=== PATIENT | male | born 1950 | race African-American/Black ===

== ENCOUNTER 2021-03-07 14:44 | Inpatient (IN) | payer OTHER ==
[~2021-03-07] VITALS: Ht 188 cm; Wt 114.3 kg
--- NOTE | ~2021-03-07 | EMS ---
[address] [address] EMS Patient Care Report Name: MANDIE CARROLL Room #: 201-P ADM IN M.R.#: [id number] Admission: 03/07/21 Attend Phys: Tenisha Mills MD Discharge: Date of : 52 Report #: [id number] THIS REPORT FOR: //name// Report Transmitted: 03/07/2021 23:49 EMS Care Summary [place], [place]/[facility] Incident [id number] @ 03/07/2021 14:21 Incident Location [address] [place] [address] Patient MANDIE CARROLL Male, 70 Years 1950 Patient Address [address] [id number] Patient History Diabetes,Pacemaker/AICD,Hyperlipidemia,Atrial Fibrillation,Dialysis,Chronic Kidney Disease, Patient Allergies No known allergies, Patient Medications Glipizide, Allopurinol, Nitroglycerin, Apixaban, Aspirin, Amiodarone, Atorvastatin, Hyoscyamine, Torsemide, Loratadine, Carvedilol, Chief Complaint CARDIAC ARREST Disposition Transported Lights/[place] Dispatch Reason Cardiac Arrest/ Transported To [facility] Narrative MEDIC 41 DISPATCHED FOR A CARDIAC ARREST. UPON ARRIVAL PUMPER 36 WAS ALREADY ON SCENE AND WITH THE PATIENT. THE PATIENT WAS FOUND IN A DIALYSIS CENTER AND HE WAS RECEIVING A TREATMENT THIS DAY. STAFF REPORTED THAT THE PATIENT HAD GONE [address] [address] EMS Patient Care Report Name: MANDIE CARROLL Room #: 201-P [facility] IN M.R.#: [id number] Admission: 03/07/21 Attend Phys: Tenisha Mills MD Discharge: Date of : 52 Report #: [id number] INTO CARDIAC ARREST AND THEY STARTED COMPRESSIONS. STAFF STATED THEY SHOCKED HIM TWICE AND GOT ROSC WITH NO DRUG ADMINISTRATION. THE PATIENT WAS AWAKE AND BECAME MORE ALERT DURING OUR TIME ON SCENE AND CONSENTED TO ALL VITALS AND ASSESSMENT. THE PATIENT DID HAVE NRB ON THAT PUMPER 36 PLACED BUT IT WAS REMOVED DUE TO THE PATIENT VOMITING. A 12 LEAD WAS OBTAINED BY PUMPER 36 BEFORE MOVING THE PATIENT TO THE STRETCHER. THE PRINTED OFF [address] ELEVATION IN LEADS V3 AND V4. THE PATIENT WAS MOVED TO OUR STRETCHER AND TAKEN OUT TO THE AMBULANCE WITH NO INCIDENT. THE PATIENT WAS LEFT ON PUMPER 36'S MONITOR AND IT WAS TAKEN WITH EMS. IV WAS ESTABLISHED AND PATIENT WAS PUT BACK ON THE MONITOR WHILE IN THE AMBULANCE. DURING TRANSPORT THE PATIENT'S CONDITION REMAINED CONSTANT. UPON ARRIVAL TO THE HOSPITAL THE PATIENT WAS MOVED TO THE ED WITHOUT INCIDENT AND CARE WAS TRANSFERRED TO THE ED NURSE. A SECOND BLOOD PRESSURE WAS ATTEMPTED BUT UNABLE TO OBTAIN. Initial Vitals @14:33P: 83,R: 21,CO: 2,SpO2: 86, @PTAP: 114,R: 55,CO: 0,SpO2: 93, @14:39P: 102,R: 26,Glucose: 124,SpO2: 94, @PTAP: 105,R: 25,BP: 181/95,GCS: 15,CO: 1,SpO2: 94,Revised Trauma: 12, @14:37P: 101,R: 33,GCS: 15,CO: 3,SpO2: 95, @14:44P: 77,R: 20,GCS: 15,CO: 6,SpO2: 97, Assessments @14:33MENTAL:Person Oriented,Place Oriented,Time Oriented,Event Oriented,SKIN:HEENT:Head/Face: No Abnormalities,Neck/Airway: No Abnormalities,LUNG SOUNDS:General: Vomiting,ABDOMEN:General: Vomiting,PELVIS//GI:EXTREMITIES:Capillary Refill: Left Upper: < 2 Sec,Capillary Refill: Right Upper: < 2 Sec,Left Arm: No Abnormalities,Right Arm: No Abnormalities,PULSE:Radial: 2+ Normal,NEURO:@14:44MENTAL:Place Oriented,Person Oriented,Time Oriented,Event Oriented,SKIN:HEENT:Head/Face: No Abnormalities,Neck/Airway: No Abnormalities,LUNG SOUNDS:ABDOMEN:PELVIS//GI:EXTREMITIES:Capillary Refill: Left Upper: < 2 Sec,Capillary Refill: Right Upper: < 2 Sec,Left Arm: No Abnormalities,Right Arm: No Abnormalities,PULSE:Radial: 2+ Normal,NEURO: Impression ST elevation myocardial infarction (STEMI) Procedures @14:32 ALS Assessment Response: UnchangedSucceeded @14:34 Stretcher Response: Unchanged @BURRER HAND Response: ImprovedSucceeded @PTA3-Lead ECG Response: UnchangedSucceeded @BURRER HAND Response: UnchangedSucceeded @BURRER HAND Response: ImprovedSucceeded @14:39 IV Therapy - Saline Lock 10cc (20 ga) Site: Hand-Left Response: [address] [address] EMS Patient Care Report Name: MANDIE CARROLL Room #: 201-P [facility] IN M.R.#: [id number] Admission: 03/07/21 Attend Phys: Tenisha Mills MD Discharge: Date of : 52 Report #: [id number] UnchangedSucceeded @14:33 12-Lead ECG Response: UnchangedSucceeded @PTAOxygen Device: Non Re-breather Mask (NRB) Response: ImprovedSucceeded Timeline BURRER HAND,Response: ImprovedSucceeded, BURRER HAND,3-Lead ECG,Response: UnchangedSucceeded, BURRER HAND,Response: UnchangedSucceeded, BURRER HAND,Response: ImprovedSucceeded, BURRER HAND,Oxygen Device: Non Re-breather Mask (NRB) Response: ImprovedSucceeded, BURRER HAND,BP: / M,PULSE: 114,RR: 55 R,SPO2: 93 Ox,ETCO2: ,BG: ,PAIN: ,GCS: , BURRER HAND,BP: 181/95 M,PULSE: 105,RR: 25 R,SPO2: 94 Ox,ETCO2: ,BG: ,PAIN: ,GCS: 15, 14:21,Call Received 14:21,Dispatch Notified 14:21,Dispatched 14:22,En Route 14:31,On Scene 14:32,At Patient 14:32,ALS Assessment,Response: UnchangedSucceeded, 14:33,12-Lead ECG,Response: UnchangedSucceeded, 14:33,BP: / M,PULSE: 83,RR: 21 R,SPO2: 86 Ox,ETCO2: ,BG: ,PAIN: ,GCS: , 14:34,Stretcher,Response: Unchanged 14:37,BP: / M,PULSE: 101,RR: 33 R,SPO2: 95 Ox,ETCO2: ,BG: ,PAIN: ,GCS: 15, 14:39,IV Therapy - Saline Lock 10cc 20 ga Site: Hand-Left,Response: UnchangedSucceeded, 14:39,BP: / M,PULSE: 102,RR: 26 R,SPO2: 94 Ox,ETCO2: ,B,PAIN: ,GCS: , 14:39,Depart Scene 14:44,BP: / M,PULSE: 77,RR: 20 R,SPO2: 97 Ox,ETCO2: ,BG: ,PAIN: ,GCS: 15, 14:45,At Destination 15:14,Call Closed Disclaimer v1.1 Copyright 2020 [employer] This EMS Care Summary contains data elements from the applicable legal record (which may be displayed differently). It is designed to provide pertinent information for the following purposes: continuity of care, clinical quality, and state data reporting. The complete legal record is available to ED staff and administrators of the receiving hospital in [employer]'s Patient Tracker. All data is provided "as is."
--- NOTE | ~2021-03-07 | EMS ---
[address] [address] EMS Patient Care Report Name: MANDIE CARROLL Room #: 201-P ADM IN M.R.#: [id number] Admission: 03/07/21 Attend Phys: Tenisha Mills MD Discharge: Date of : 52 Report #: [id number] THIS REPORT FOR: //name// Report Transmitted: 03/07/2021 22:47 EMS Care Summary [place], [place]/[facility] Incident [id number] @ 03/07/2021 14:21 Incident Location [address] [place] [address] Patient MANDIE CARROLL Male, 70 Years 1950 Patient Address [address] [place] [address] Patient History Diabetes,Pacemaker/AICD,Hyperlipidemia,Atrial Fibrillation,Dialysis,Chronic Kidney Disease, Patient Allergies No known allergies, Patient Medications Glipizide, Allopurinol, Nitroglycerin, Apixaban, Aspirin, Amiodarone, Atorvastatin, Hyoscyamine, Torsemide, Loratadine, Carvedilol, Chief Complaint CARDIAC ARREST Disposition Transported Lights/[place] Dispatch Reason Cardiac Arrest/ Transported To [facility] Narrative MEDIC 41 DISPATCHED FOR A CARDIAC ARREST. UPON ARRIVAL PUMPER 36 WAS ALREADY ON SCENE AND WITH THE PATIENT. THE PATIENT WAS FOUND IN A DIALYSIS CENTER AND HE WAS RECEIVING A TREATMENT THIS DAY. STAFF REPORTED [place] [address] EMS Patient Care Report Name: MANDIE CARROLL Room #: 201-P [facility] IN M.R.#: [id number] Admission: 03/07/21 Attend Phys: Tenisha Mills MD Discharge: Date of : 52 Report #: [id number] INTO CARDIAC ARREST AND THEY STARTED COMPRESSIONS. STAFF STATED THEY SHOCKED HIM TWICE AND GOT ROSC WITH NO DRUG ADMINISTRATION. THE PATIENT WAS AWAKE AND BECAME MORE ALERT DURING OUR TIME ON SCENE AND CONSENTED TO ALL VITALS AND ASSESSMENT. THE PATIENT DID HAVE NRB ON THAT PUMPER 36 PLACED BUT IT WAS REMOVED DUE TO THE PATIENT VOMITING. A 12 LEAD WAS OBTAINED BY PUMPER 36 BEFORE MOVING THE PATIENT TO THE STRETCHER. THE PRINTED OFF [address] ELEVATION IN LEADS V3 AND V4. THE PATIENT WAS MOVED TO OUR STRETCHER AND TAKEN OUT TO THE AMBULANCE WITH NO INCIDENT. THE PATIENT WAS LEFT ON PUMPER 36'S MONITOR AND IT WAS TAKEN WITH EMS. IV WAS ESTABLISHED AND PATIENT WAS PUT BACK ON THE MONITOR WHILE IN THE AMBULANCE. DURING TRANSPORT THE PATIENT'S CONDITION REMAINED CONSTANT. UPON ARRIVAL TO THE HOSPITAL THE PATIENT WAS MOVED TO THE ED WITHOUT INCIDENT AND CARE WAS TRANSFERRED TO THE ED NURSE. A SECOND BLOOD PRESSURE WAS ATTEMPTED BUT UNABLE TO OBTAIN. Initial Vitals @14:33P: 83,R: 21,CO: 2,SpO2: 86, @PTAP: 114,R: 55,CO: 0,SpO2: 93, @14:39P: 102,R: 26,Glucose: 124,SpO2: 94, @PTAP: 105,R: 25,BP: 181/95,GCS: 15,CO: 1,SpO2: 94,Revised Trauma: 12, @14:37P: 101,R: 33,GCS: 15,CO: 3,SpO2: 95, @14:44P: 77,R: 20,GCS: 15,CO: 6,SpO2: 97, Assessments @14:33MENTAL:Person Oriented,Place Oriented,Time Oriented,Event Oriented,SKIN:HEENT:Head/Face: No Abnormalities,Neck/Airway: No Abnormalities,LUNG SOUNDS:General: Vomiting,ABDOMEN:General: Vomiting,PELVIS//GI:EXTREMITIES:Capillary Refill: Left Upper: < 2 Sec,Capillary Refill: Right Upper: < 2 Sec,Left Arm: No Abnormalities,Right Arm: No Abnormalities,PULSE:Radial: 2+ Normal,NEURO:@14:44MENTAL:Place Oriented,Person Oriented,Time Oriented,Event Oriented,SKIN:HEENT:Head/Face: No Abnormalities,Neck/Airway: No Abnormalities,LUNG SOUNDS:ABDOMEN:PELVIS//GI:EXTREMITIES:Capillary Refill: Left Upper: < 2 Sec,Capillary Refill: Right Upper: < 2 Sec,Left Arm: No Abnormalities,Right Arm: No Abnormalities,PULSE:Radial: 2+ Normal,NEURO: Impression ST elevation myocardial infarction (STEMI) Procedures @14:32 ALS Assessment Response: UnchangedSucceeded @14:34 Stretcher Response: Unchanged @SPLICING MACHINE OPERATOR AUTOMATIC Response: ImprovedSucceeded @PTA3-Lead ECG Response: UnchangedSucceeded @SPLICING MACHINE OPERATOR AUTOMATIC Response: UnchangedSucceeded @SPLICING MACHINE OPERATOR AUTOMATIC Response: ImprovedSucceeded @14:39 IV Therapy - Saline Lock 10cc (20 ga) Site: Hand-Left Response: [address] [address] EMS Patient Care Report Name: MANDIE CARROLL Room #: 201-P [facility] IN M.R.#: [id number] Admission: 12/24/21 Attend Phys: Tenisha Mills MD Discharge: Date of : 52 Report #: [id number] UnchangedSucceeded @14:33 12-Lead ECG Response: UnchangedSucceeded @PTAOxygen Device: Non Re-breather Mask (NRB) Response: ImprovedSucceeded Timeline SPLICING MACHINE OPERATOR AUTOMATIC,Response: ImprovedSucceeded, SPLICING MACHINE OPERATOR AUTOMATIC,3-Lead ECG,Response: UnchangedSucceeded, SPLICING MACHINE OPERATOR AUTOMATIC,Response: UnchangedSucceeded, SPLICING MACHINE OPERATOR AUTOMATIC,Response: ImprovedSucceeded, SPLICING MACHINE OPERATOR AUTOMATIC,Oxygen Device: Non Re-breather Mask (NRB) Response: ImprovedSucceeded, SPLICING MACHINE OPERATOR AUTOMATIC,BP: / M,PULSE: 114,RR: 55 R,SPO2: 93 Ox,ETCO2: ,BG: ,PAIN: ,GCS: , SPLICING MACHINE OPERATOR AUTOMATIC,BP: 181/95 M,PULSE: 105,RR: 25 R,SPO2: 94 Ox,ETCO2: ,BG: ,PAIN: ,GCS: 15, 14:21,Call Received 14:21,Dispatch Notified 14:21,Dispatched 14:22,En Route 14:31,On Scene 14:32,At Patient 14:32,ALS Assessment,Response: UnchangedSucceeded, 14:33,12-Lead ECG,Response: UnchangedSucceeded, 14:33,BP: / M,PULSE: 83,RR: 21 R,SPO2: 86 Ox,ETCO2: ,BG: ,PAIN: ,GCS: , 14:34,Stretcher,Response: Unchanged 14:37,BP: / M,PULSE: 101,RR: 33 R,SPO2: 95 Ox,ETCO2: ,BG: ,PAIN: ,GCS: 15, 14:39,IV Therapy - Saline Lock 10cc 20 ga Site: Hand-Left,Response: UnchangedSucceeded, 14:39,BP: / M,PULSE: 102,RR: 26 R,SPO2: 94 Ox,ETCO2: ,B,PAIN: ,GCS: , 14:39,Depart Scene 14:44,BP: / M,PULSE: 77,RR: 20 R,SPO2: 97 Ox,ETCO2: ,BG: ,PAIN: ,GCS: 15, 14:45,At Destination 15:14,Call Closed Disclaimer v1.1 Copyright 2020 [employer] This EMS Care Summary contains data elements from the applicable legal record (which may be displayed differently). It is designed to provide pertinent information for the following purposes: continuity of care, clinical quality, and state data reporting. The complete legal record is available to ED staff and administrators of the receiving hospital in [employer]'s Patient Tracker. All data is provided "as is."
[~2021-03-07 14:44] MED LIST: ACTOS 45 MG45 M1 PO; ACTOS15 MG PO; ADULT LOW DOSE81 MG PO; ALLOPURINOL 10100 M1 PO; AMLODIPINE BESY10 MG PO; ASPIRIN EC81 M1 PO; ASPIRIN325 PO; BENICAR40 MG PO; CARVEDILOL25 MG PO; CLARITIN10 MG PO; COREG CR80 MG PO; CRESTOR40 MG PO; ENALAPRIL MALEA20 MG PO; FERROUS SULFAT325 M1 PO; FISH OIL SOFTG1 EACH PO; FISHOIL PO; FLOMAX PO; FUROSEMIDE 80 M80 M1 PO; GLUCOPHAGE1000 MG PO; GLUCOTROL XL2.5 MG PO; HYDROCODON-ACE1 EAC1 PO; LIPITOR40 MG PO; LISINOPRIL20 MG PO; LOVASTATIN 20 M20 MG PO; MEDROL DOSPAK21 TAB PO; NICOTINE TRANSDE7 MG TD; NORCO 5-325 TA1 EACH PO; PRAVACHOL40 MG PO; PREDNISONE50 MG PO; PROAIR HFA8.5 GM; PROAIR HFA8.5 GM IH; SYMBICORT160 MCG/4.; TORSEMIDE20 MG PO; VITAMIN D-32000 UNIT PO; WELLBUTRIN75 MG PO; ZETIA10 MG PO; ZPAK PO
[2021-03-07 14:55] VITALS: BP 124/78
[2021-03-07] MEDS ORDERED: PACERONE 200 M200 M1 PO (15:14)
[2021-03-07] MEDS ORDERED: ASA81BEC PO (15:14)
[2021-03-07] MEDS ORDERED: ATORVASTATIN CA80 MG PO (15:16)
[2021-03-07 15:18] LABS: ABSOLUTE NEUTROPHILS 3.5 thou/uL (1.4-8.2); BASOPHILS 1.2 % (0.0-2.0); EOSINOPHILS 2.4 % (0.0-3.0); HEMATOCRIT 32.5 % (42.0-52.0); HEMOGLOBIN 10.5 gm/dL (14.0-18.0); LYMPHOCYTES 14.4 % (24.0-44.0); MCH 29.7 pg (26.0-34.0); MCHC 32.3 g/dL (28.0-37.0); MCV 92.2 fL (80.0-100.0); MONOCYTES 8.9 % (1.0-8.0); PLATELET COUNT 230 thou/uL (150-400); POLYS 73.1 % (36.0-66.0); RBC 3.52 mil/uL (4.50-6.00); RDW 20.9 % (10.5-14.5); WBC 4.7 thou/uL (4.0-11.0)
[2021-03-07 15:26] LABS: CREATININE 4.5 mg/dL (0.7-1.3); POTASSIUM 3.5 mmol/L (3.5-5.1)
[2021-03-07 15:36] LABS: ALBUMIN 2.9 g/dL (3.4-5.0); TOTAL BILIRUBIN 0.6 mg/dL (0.2-1.0)
[2021-03-07] MEDS ORDERED: GLUCOTROL XL2.5 MG PO (15:36)
[2021-03-07] MEDS ORDERED: ZETIA10 MG PO (15:36)
[2021-03-07] MEDS ORDERED: NEPHRO-VITE TA0.8 MG PO (15:37)
[2021-03-07 19:27] VITALS: BP 138/80
[2021-03-07 22:05] VITALS: BP 136/82
--- NOTE | 2021-03-08 04:21 | NUR ---
PT ARRIVED ON UNIT AT 2100 FROM ER. ADMITTED POST CODE DURING DIALYSIS. LIVES AT HOME WITH . NO CHEST PAIN. NO RESIDUALS POST CODE. INDEPENDENT IN ROOM. NO NEEDS VOICED. CALL LIGHT WITHIN REACH. FREQUENT OBSERVATION.
[2021-03-08 04:45] VITALS: BP 124/59
[2021-03-08 07:00] VITALS: BP 105/55
[2021-03-08 11:00] VITALS: BP 96/55
--- NOTE | 2021-03-08 12:53 | NUR ---
PLEASE SEE OT VARIANCE
[2021-03-08 13:54] VITALS: BP 86/49
[2021-03-08 15:00] VITALS: BP 100/64
--- NOTE | 2021-03-08 17:30 | NUR ---
PATIENT RESTED IN BED THROUGHOUT SHIFT, TURNS SELF. AMIODARONE WAS STARTED PER CARDIOLOGY. CARDIOLOGY WAS NOTIFIED OF THE DECREASE IN BLOOD PRESSURE, DR. RECINOS STATED THAT THE BLOOD PRESSURE WAS OK FOR THE AMIODARONE AND TO CONTINUE TO MONITOR. BLOOD PRESSURE DID REBOUND SLIGHTLY. PT COMPLAINED OF CHEST PAIN THAT INCREASED WITH PALPATATION STATING IT HAS BEEN THE SAME SINCE ADMIT AND DENIED THE NEED FOR ADDITIONAL PAIN CONTROL.
[2021-03-08 19:32] VITALS: BP 116/66
[2021-03-09 04:06] LABS: ABSOLUTE NEUTROPHILS 5.8 thou/uL (1.4-8.2); BASOPHILS 0.8 % (0.0-2.0); HEMATOCRIT 29.5 % (42.0-52.0); HEMOGLOBIN 9.6 gm/dL (14.0-18.0); LYMPHOCYTES 7.6 % (24.0-44.0); MCH 29.8 pg (26.0-34.0); MCHC 32.5 g/dL (28.0-37.0); MCV 91.9 fL (80.0-100.0); PLATELET COUNT 188 thou/uL (150-400); POLYS 74.6 % (36.0-66.0); RBC 3.21 mil/uL (4.50-6.00); RDW 20.3 % (10.5-14.5); WBC 7.8 thou/uL (4.0-11.0)
[2021-03-09 04:15] LABS: ALBUMIN 2.9 g/dL (3.4-5.0); CALCIUM 8.2 mg/dL (8.5-10.1); MAGNESIUM 2.1 mg/dL (1.8-2.4); PHOSPHORUS 7.1 mg/dL (2.5-4.9); POTASSIUM 4.3 mmol/L (3.5-5.1)
[2021-03-09 04:23] LABS: CREATININE 8.3 mg/dL (0.7-1.3)
[2021-03-09 04:26] VITALS: BP 137/78
[2021-03-09 09:18] VITALS: BP 148/92
[2021-03-09 10:29] VITALS: BP 131/75
[2021-03-09 14:48] VITALS: BP 137/92
--- NOTE | 2021-03-09 16:37 | NUR ---
PATIENT ASSESMENTS CHARTED. PATIENT COMPLAINING OF NO BM AND THROAT SORENESS.
--- NOTE | 2021-03-09 19:30 | NUR ---
Patient received with infiltrated IV on right hand, Amiodarone drip infusing. Burning pain,very swollen. Ice pack applied then warm moist heat to hekp relieve pain along with Tylenol.
[2021-03-09 19:47] VITALS: BP 162/96
[2021-03-09 21:12] LABS: HEMATOCRIT 30.2 % (42.0-52.0); HEMOGLOBIN 9.7 gm/dL (14.0-18.0)
[2021-03-10 04:06] VITALS: BP 144/95
--- NOTE | 2021-03-10 06:40 | NUR ---
Patient making slow progress towards outcome goals. Vital signs and rhythm stable. Amiodarone drip infusing on new IV site @ right forearm. Right hand pain and swelling improved after patient applied Lidocaine cream. NPO after MN for planned heart cath after dialysis. Dialysis expected to complete after 3 1/2 hours, before noon per dialysis nurse. No results after Miralax. Incidental Hypoglycemia treated with juice with improvement.
[2021-03-10 07:11] VITALS: BP 150/98
--- NOTE | 2021-03-10 07:15 | EKG ---
[place] [address] [employer] [facility] [place] [address] ELECTROCARDIOGRAM REPORT Name: GLENMANDIE LEE Room #: 201-P ADM IN M.R.#: [id number] Admission: 03/07/21 Attend Phys: Tenisha Mills MD Discharge: Date of : 52 Report #: [id number] [facility] ED Test Date: 2021-03-07 Test Time: 14:50:49 Pat Name: MANDIE CARROLL Department: Room: 201 Gender: M National Sales Consultant: BRISA : 1950 Requested By: Priyank Esquivel Order Number: [id number] MD: Parveen Martin Measurements Intervals [place] Rate: 95 P: 207 TN: 216 QRS: 152 QRSD: 189 T: 266 QT: 466 QTc: 586 Interpretive Statements Atrial-sensed ventricular-paced complexes No further analysis attempted due to paced rhythm Baseline wander in lead(s) III,aVL Compared to ECG 12/01/2013 09:08:06 Sinus rhythm no longer present Left-axis deviation no longer present Myocardial infarct finding no longer present T-wave abnormality no longer present Possible ischemia no longer present Electronically Signed On 03-10-2021 7:14:51 CHEF CONCIERGE by Parveen Martin [email or web address] <ELECTRONICALLY SIGNED> By: Parveen Martin MD, FACC 03/10/21 0714 1450 1450 Parveen Martin MD, FACC /EPI
--- NOTE | 2021-03-10 07:17 | EKG ---
[place] [address] [facility] [place] [address] ELECTROCARDIOGRAM REPORT Name: MANDIE CARROLL Room #: 201-P ADM IN M.R.#: [id number] Admission: 03/07/21 Attend Phys: Tenisha Mills MD Discharge: Date of : 52 Report #: [id number] [facility] Test Date: 2021-03-08 Test Time: 09:30:51 Pat Name: MANDIE CARROLL Department: Room: 201 P Gender: M Professional Fighter: KADY : 1950 Requested By: Rocío Rdz Order Number: [id number] MD: Parveen Martin Measurements Intervals [place] Rate: 88 P: 50 KS: 202 QRS: 217 QRSD: 106 T: 139 QT: 422 QTc: 511 Interpretive Statements Atrial-sensed ventricular-paced complexes No further analysis attempted due to paced rhythm Baseline wander in lead(s) V1 Compared to ECG 03/07/2021 14:50:49 No significant changes Electronically Signed On 03-10-2021 7:17:14 SALON SALES CONSULTANT by Parveen Martin [email or web address] <ELECTRONICALLY SIGNED> By: Parveen Martin MD, [facility] 03/10/21 07 9 9 Parveen Martin MD, [facility] /EPI
[2021-03-10 07:28] LABS: HEMATOCRIT 27.3 % (42.0-52.0)
--- NOTE | 2021-03-10 08:56 | 2DMMODE ---
[facility] [place] [address] 2 D/M-MODE ECHOCARDIOGRAM Name: MANDIE CARROLL Room #: 201-P ADM IN M.R.#: [id number] Admission: 03/07/21 Attend Phys: Tenisha Mills MD Discharge: Date of : 52 Report #: [id number] THIS REPORT FOR: cc: FAM - Family physician unknown FAM - Family physician unknown Irvin Vizcaino MD [facility] ~ APPROVED REPORT Study performed: 03/09/2021 10:27:31 EXAM: Comprehensive 2D, Doppler, and color-flow Echocardiogram Patient Location: Bedside Room #: 201 Status: on-call BSA: 2.39 HR: 78 bpm BP: 135/65 mmHg Rhythm: NSR Other Information Study Quality: Good Indications Elevated troponin, VT. Hx: ICD, CAD, PCI, ISCM. 2D Dimensions RVDd: 59.91 mm IVSd: 14.94 (7-11mm) LVOT Diam: 20.51 (18-24mm) LVDd: 67.14 mm PWd: 7.88 (7-11mm) LVDs: 58.95 (25-40mm) Left Atrium: 54.06 (27-40mm) Aortic Root: 29.56 mm Volumes Left Atrial Volume (Systole) Single Plane 4CH: 113.35 mL Single Plane 2CH: 125.08 mL LA ESV Index: 52.00 mL/m2 Aortic Valve AoV Peak Edin.: 1.63 m/s AO Peak Gr.: 10.60 mmHg LVOT Max P.25 mmHg LVOT Max V: 1.03 m/s [facility] [address] [place] [address] 2 D/M-MODE ECHOCARDIOGRAM Name: MANDIE CARROLL Room #: 201-P [facility] IN [facility].#: [id number] Admission: 03/07/21 Attend Phys: Azalea Abbott Discharge: Date of : 52 Report #: [id number] Vmax: 2.09 cm2 Mitral Valve E/A Ratio: 4.0 MV Decel. Time: 131.05 ms MV E Max Edin.: 1.39 m/s MV A Edin.: 0.35 m/s MV PHT: 38.01 ms IVRT: 55.36 ms Pulmonary Valve PV Peak Edin.: 0.71 m/s PV Peak Gr.: 1.99 mmHg Tricuspid Valve TR Peak Edin.: 3.76 m/s RAP Estimate: 15.00 mmHg TR Peak Gr.: 57.00 mmHg PA Pressure: 72.00 mmHg Left Ventricle Left ventricle is moderately dilated. Regional wall motion abnormalities are noted.inf worse Moderate septal hypertrophy is present. Left ventricular systolic function is moderately decreased. LVEF is 35-40%. Severe diastolic dysfunction is present (restrictive filling). Right Ventricle Right ventricle is dilated. Device lead is present in the right ventricle. Atria Severe biatrial enlargement. Aortic Valve Aortic valve is calcified. Trace aortic regurgitation. There is no aortic valvular stenosis. Mitral Valve The mitral valve is normal in structure. Moderate to severe mitral regurgitation Tricuspid Valve The tricuspid valve is normal in structure. Severe tricuspid regurgitation. There is severe pulmonary hypertension. Estimated PAP is 70mmHg. Pulmonic Valve [facility] [address] [place] [address] 2 D/M-MODE ECHOCARDIOGRAM Name: GLENMANDIE LEE Room #: [facility] ADM IN ..#: [id number] Admission: 03/07/21 Attend Phys: Azalea Abbott Discharge: Date of : 52 Report #: [id number] The pulmonary valve is normal in structure. Mild pulmonic regurgitation. Great Vessels The aortic root is normal in size. IVC is dilated and collapses <50% with inspiration. Pericardium There is no pericardial effusion. <Conclusion> Left ventricle is moderately dilated. Moderate septal hypertrophy is present. Regional wall motion abnormalities are noted.inf worse LVEF is 35-40%. Severe diastolic dysfunction is present (restrictive filling). Right ventricle is dilated. Device lead is present in the right ventricle. Severe biatrial enlargement. Aortic valve is calcified. Trace aortic regurgitation. There is no aortic valvular stenosis. Moderate to severe mitral regurgitation Severe tricuspid regurgitation. There is severe pulmonary hypertension. Estimated PAP is 70mmHg. The aortic root is normal in size. There is no pericardial effusion. <ELECTRONICALLY SIGNED> By: Irvin Vizcaino MD, FACC 03/10/21855 5 5 Irvin Vizcaino MD, FACC /INF
[2021-03-10 13:22] VITALS: BP 127/77
--- NOTE | 2021-03-10 14:05 | NUR ---
Nutrition: RD consulted r/t pt/family request. Pt denied need to speak with this RD at time of visit. Although pt had just returned from cardiac cath procedure. No family in room at time of visit. He is admitted s/p code at dialysis clinic. Physicians unsure of cardiac event vs syncope. Pt reports familiar with RD at his dialysis clinic and denies need for any education at this time. RD educated to notify nursing if he or his family desired to speak with us int he future. Currently NPO, good intakes reported by pt BUNCH MAKER HAND. No sig wt changes noted. Low nutrition risk at this time.
[2021-03-10 14:59] VITALS: BP 139/81
[2021-03-10 20:15] VITALS: BP 139/74
[2021-03-11 04:44] VITALS: BP 142/90
[2021-03-11 05:37] LABS: ABSOLUTE NEUTROPHILS 5.1 thou/uL (1.4-8.2); BASOPHILS 1.3 % (0.0-2.0); EOSINOPHILS 1.9 % (0.0-3.0); HEMATOCRIT 28.2 % (42.0-52.0); HEMOGLOBIN 9.3 gm/dL (14.0-18.0); LYMPHOCYTES 4.4 % (24.0-44.0); MCH 29.7 pg (26.0-34.0); MCHC 32.9 g/dL (28.0-37.0); MCV 90.2 fL (80.0-100.0); MONOCYTES 13.7 % (1.0-8.0); PLATELET COUNT 175 thou/uL (150-400); POLYS 78.7 % (36.0-66.0); RBC 3.12 mil/uL (4.50-6.00); RDW 19.4 % (10.5-14.5); WBC 6.5 thou/uL (4.0-11.0)
[2021-03-11 06:09] LABS: CALCIUM 8.2 mg/dL (8.5-10.1); CREATININE 7.7 mg/dL (0.7-1.3); MAGNESIUM 1.8 mg/dL (1.8-2.4); POTASSIUM 4.4 mmol/L (3.5-5.1)
[2021-03-11] MEDS ORDERED: PACERONE 200 M200 M1 PO ×2 (07:32→08:40)
--- NOTE | 2021-03-11 08:24 | NUR ---
pt stated he only slept on and off thru the noc, no c/o pain, vss, hoping to go home today, r groin remains cdi, report given to next shift to con't ppoc
[2021-03-11] MEDS ORDERED: ELIQUIS2.5 MG PO (08:37)
[2021-03-11 09:30] VITALS: BP 143/79
--- NOTE | 2021-03-11 09:49 | NUR ---
ORDERS RECEIVED FOR PT EVAL AND TREAT. Pt HAS BEEN UP AD LALA IN ROOM, WHICH RN CONFIRMED. STATED HE USUALLY USES A CANE AT HOME BUT HAS BEEN OKAY FOR SHORT DISTANCES IN ROOM WHILE HERE. CARDIAC CATH 03/10/21. Pt DECLINED NEED FOR PT AT THIS TIME. ACUTE PT TO SIGN OFF.
[2021-03-11 10:58] VITALS: BP 143/79
[2021-03-11 11:06] VITALS: BP 143/79
--- NOTE | 2021-03-11 11:58 | NUR ---
PATIENT DISCHARGED WITH . IV AND TELE REMOVED. PATIENT HAS NO QUESTIONS OVER HOSPITAL COURSE AND OUTPATIENT FOLLOW UP.
--- NOTE | 2021-03-11 22:20 | CATHLAB ---
[facility] [place] [address] INVASIVE PROCEDURE REPORT Name: MANDIE CARROLL Room #: 201-P DIS IN M.R.#: [id number] Admission: 03/07/21 Attend Phys: Tenisha Mills MD Discharge: 03/11/21 Date of : 52 Report #: [id number] THIS REPORT FOR: cc: FAM - Family physician unknown FAM - Family physician unknown Irvin Vizcaino MD [facility] ~ APPROVED REPORT Study performed: 03/10/2021 11:06:56 Patient Details Patient Status: In-Patient Room #: 201 The patient is a 70 year-old male Event Personnel Irvin Vizcaino Life [employer] Specialist, Elena Carroll RTR Monitor, Melva Strange RTR, UNDERWATER ROBOTICIST Scrub, Vee Darden RN RN, Issa Beck RN graphic design manager Performed Art Access - R femoral artery* Jeovany Access - R femoral vein Right and Left Heart Cath w/or w/o Coronarie [id number] [facility] Hemostasis with Manual pressure Hemostasis w/ Mynx 37218 Initial Mod Sed Same Phys/QHP Gr5y [id number] Mod Sed Same Phys/QHP Ea [id number] Procedure Narrative The Right Groin^ was infiltrated with 1% Lidocaine subcutaneous anesthesia. A PINNACLE 6FR Sheath #[id number] sheath was inserted into the RFA. Coronary angiography was performed using coronary diagnostic catheters. The right coronary system was accessed and visualized with a JR4 catheter. The left coronary system was accessed and visualized with a JL4 catheter. The left ventricle was accessed and visualized with a STRAIGHT PIGTAIL catheter. Left ventriculogram was performed in 30 degree projection. Closure device was deployed with a Fr MYNXGRIP 6/7F #[id number]. The patient tolerated the procedure well and there were no complications associated with the procedure. There was no hematoma. Intraoperative Conscious Sedation Sedation start time: 12:11 Case end Time: 12:55 Fentanyl 50 mcg Versed 1 mg Fluoro Time: 5.40 minutes [facility] [address] [place] [address] INVASIVE PROCEDURE REPORT Name: MANDIE CARROLL Room #: 201-P [facility] IN .R.#: [id number] Admission: 03/07/21 Attend Phys: Azalea Abbott Discharge: 03/11/21 Date of : 52 Report #: [id number] Dose: DAP 93519.50 cGycm2 1398 mGy Contrast Type and Amount: Visipaque 110 ml Hemodynamics The right atrial mean pressure is 19 mmHg. The right ventricular pressure is 80/6 mmHg. The pulmonary artery pressure is 80/36 mmHg with a mean of 52 mmHg. The mean pulmonary capillary wedge pressure is 22 mmHg. The aortic pressure is 141/70 mmHg with a mean of 102 mmHg. The left ventricular pressure is 152/10 mmHg with a mean of mmHg. The left ventricular end diastolic pressure is 30 mmHg. The cardiac output using thermo method is 5.40 L/min. The cardiac index using thermo method is 2.25 L/min/m2. Conclusion #1 Successful right heart catheterization with cardiac output by thermodilution. See above hemodynamics. #2 moderately dilated left ventricle with moderate global hypokinesis worse inferior EF 35 to 40% range. #3 the left main is large and ectatic widely patent giving rise to LAD and circumflex. #4 LAD is moderately diseased looks to be a proximal stent previously placed appears widely patent diffuse disease throughout the system and into the diagonal no occlusive disease. #5 circumflex OM is also large and ectatic with an eccentric 70% lesion after an OM takeoff and the circumflex but just diffusely slow flow throughout extensively calcified system would be no indication for coronary intervention. Extensive choroidopathy is noted. May have been or is codominant. 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 Recommendations and plan: Continue aggressive risk factor modification. 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 We will continue amiodarone load no indication for intervention here. These are large ectatic vessels that would not be very amenable to intervention if it was indicated. <ELECTRONICALLY SIGNED> By: Irvin Vizcaino MD, FACC 03/11/212219 19 19 Irvin Vizcaino MD, FACC /INF
== END 2021-03-11 11:59 | disposition home or self-care (01) | DRG 286 ==
LOC: ER 14:44 → EROBS 19:19 → 2N 19:19
PROVIDERS: Emergency Medicine; Nurse Practitioner; ADMIT Hospitalist; ATTEND Hospitalist
DX: I49.01 Ventricular fibrillation (principal); J96.01 Acute respiratory failure with hypoxia; N18.6 End stage renal disease; J18.9 Pneumonia, unspecified organism; J44.1 Chronic obstructive pulmonary disease with (acute) exacerbation; I50.20 Unspecified systolic (congestive) heart failure; J44.0 Chronic obstructive pulmonary disease with (acute) lower respiratory infection; I13.2 Hypertensive heart and chronic kidney disease with heart failure and with stage 5 chronic kidney disease, or end stage renal disease; I25.10 Atherosclerotic heart disease of native coronary artery without angina pectoris; I47.2 Ventricular tachycardia; I46.9 Cardiac arrest, cause unspecified; E78.5 Hyperlipidemia, unspecified; M10.9 Gout, unspecified; I25.5 Ischemic cardiomyopathy; I48.0 Paroxysmal atrial fibrillation; F17.210 Nicotine dependence, cigarettes, uncomplicated; E11.22 Type 2 diabetes mellitus with diabetic chronic kidney disease; I95.9 Hypotension, unspecified; G47.33 Obstructive sleep apnea (adult) (pediatric); J20.9 Acute bronchitis, unspecified; E11.649 Type 2 diabetes mellitus with hypoglycemia without coma; M17.11 Unilateral primary osteoarthritis, right knee; Z20.822 Contact with and (suspected) exposure to COVID-19; D63.8 Anemia in other chronic diseases classified elsewhere; E66.9 Obesity, unspecified; Z68.32 Body mass index [BMI] 32.0-32.9, adult; Z85.038 Personal history of other malignant neoplasm of large intestine; I69.320 Aphasia following cerebral infarction; Z98.42 Cataract extraction status, left eye; I25.2 Old myocardial infarction; Z88.6 Allergy status to analgesic agent; Z95.0 Presence of cardiac pacemaker; Z95.5 Presence of coronary angioplasty implant and graft; Z71.6 Tobacco abuse counseling; Z98.41 Cataract extraction status, right eye; Z90.49 Acquired absence of other specified parts of digestive tract
CPT/HCPCS: 10081; 32100